=== PATIENT | female | born 1995 | race African-American/Black ===

== ENCOUNTER 2019-07-02 20:34 | Emergency (ER) | payer BC ==
--- NOTE | 2019-07-03 02:15 | EDM.PDOC ---
ED HPI GENERAL MEDICAL PROBLEM - General Chief Complaint: General Stated Complaint: EXTREME VAG PAIN AND LEFT PAIN AND RT FOOT Time Seen by Provider: 07/03/19 01:53 Source of Information: Reports: Patient History Limitations: Reports: No Limitations - History of Present Illness INITIAL COMMENTS - FREE TEXT/NARRATIVE: Ms. Nur is a very pleasant 24-year-old woman with no chronic medical issues, who states that she was last sexually active in early April, with no intercourse since. She had a menstrual period on 05/10/2019, and ever since then , she has had vaginal irritation, pruritus, odor, and a yellowish mucousy discharge. She had a subsequent menstrual period, her most recent, on 06/12/2019 , and she states that her menses made her symptoms even worse. She tried over- the-counter Monistat in late May, which did not help the situation. She states that she was seen at the walk-in clinic on 06/26/2019. She states that a vaginal swab and a vaginal GC/chlamydia were performed, all of which returned negative. She states that no other tests were performed, no diagnosis given, and no prescriptions written. She then used an [id number] intravaginal antifungal cream that begins with "T" (likely tioconazole, aka Vagistat-1) this past , 06/29/2019. It also did not help. No prior similar symptoms. The patient states that she has had loose stools for about 1 month. No dysuria , per se, except urination causes vaginal burning. She urinates often, but states that she drinks a lot of water. She denies recent fever, chills, cough, dyspnea, chest pain, palpitations, nausea, vomiting, constipation, abdominal pain, recent weight gain or weight loss, recent bloody bowel movements or black bowel movements, recent joint aches, headaches, or rashes. The patient's PCP is in [facility]. She is in this area for work. She is returning to [place] this coming 07/07/2019. She received an influenza vaccine this past 06/26/2019. Vaginal Pain Score (Numeric/FACES): 7 - Related Data Allergies Allergy/AdvReac Type Severity Reaction Status Date / Time No Known Allergies Allergy Verified 07/02/19 20:47 Home Meds: Home Meds . [No Known Home Meds] 07/02/19 [History] Past Medical History Endocrine/Metabolic History: Reports: Obesity/BMI 30+ - Infectious Disease History Infectious Disease History: Reports: Human Papilloma Virus (HPV) - Past Surgical History HEENT Surgical History: Reports: Adenoidectomy, Myringotomy w Tube(s) (bilateral ), Tonsillectomy Social & Family History - Tobacco Use Smoking Status *Q: Never Smoker Tobacco Use Within Last Twelve Months: Vaping (nicotine) - Caffeine Use Caffeine Use: Reports: Coffee - Alcohol Use Alcohol Use History: Yes Alcohol Use Frequency: Socially - Recreational Drug Use Recreational Drug Use: No - Living Situation & Occupation Living situation: Reports: Single, Alone Occupation: Employed (EXTERN) ED ROS GENERAL - Review of Systems Review Of Systems: Comprehensive ROS is negative, except as noted in HPI. ED EXAM, RENAL/ - Physical Exam Exam: See Below Exam Limited By: No Limitations General Appearance: Alert, WD/WN, No Apparent Distress Eye Exam: Bilateral Eye: EOMI, Normal Inspection Ears: Normal External Exam, Hearing Grossly Normal Nose: Normal Inspection Throat/Mouth: Normal Inspection, Normal Lips, Normal Voice, No Airway Compromise Head: Atraumatic, Normocephalic Neck: Normal Inspection, Full Range of Motion Respiratory/Chest: No Respiratory Distress, Lungs Clear, Normal Breath Sounds, No Accessory Muscle Use Cardiovascular: Normal Peripheral Pulses, Regular Rate, Rhythm, No Edema, No Gallop, No JVD, No Murmur, No Rub GI/Abdominal: Normal Bowel Sounds, Soft, Non-Tender (including suprapubically), No Organomegaly, No Distention, No Abnormal Bruit, No Mass (Female) Exam: Vaginal Discharge (copious, greenish, slightly thick, slightly malodorous). No: Cervix Motion Tenderness, Vaginal Bleeding, Vaginal Lesions Rectal (Female) Exam: Deferred Back Exam: Normal Inspection, Full Range of Motion. No: CVA Tenderness (L), CVA Tenderness (R) Extremities: Normal Inspection, Normal Range of Motion, No Pedal Edema, Normal Capillary Refill Neurological: Alert, Oriented, Normal Cognition, No Motor/Sensory Deficits Psychiatric: Normal Affect Skin Exam: Warm, Dry, Intact, Normal Color, No Rash Course - Vital Signs Last Recorded V/S: Last Vital Signs Temp 36.3 C 07/02/19 20:43 Pulse 73 07/02/19 20:43 Resp 16 07/02/19 20:43 BP 137/87 07/02/19 20:43 Pulse Ox 100 07/02/19 20:43 - Orders/Labs/Meds Orders: Active Orders 24 hr Category Date Time Status CULTURE GENITAL [RM] Stat Lab 07/03/19 02:15 Received Labs: Laboratory Tests 07/03/19 Range/Units 02:15 C trachomatis DNA (PCR) Not detected N gonorrhoeae DNA (PCR) Not detected Meds: Medications Discontinued Medications Generic Name Dose Route Start Last Admin Trade Name Dada PRN Reason Stop Dose Admin Metronidazole 2,000 mg 07/03/19 03:02 07/03/19 03:16 Metronidazole PO 07/03/19 03:03 2,000 mg NOW STA Administration - Re-Assessments/Exams Free Text/Narrative Re-Assessment/Exam: 07/03/19 02:03 As above, the patient relates a history of vaginitis and vaginal discharge, but the cause is not immediately clear, particularly since a wet prep or culture, along with a GC/chlamydia were apparently negative at the walk-in clinic a week ago. I have asked Mey MINER to put the patient into our gyne examination room, where I will examine the patient and collect swabs, including a GC/chlamydia by PCR. 07/03/19 02:15 On pelvic examination, the patient has a copious amount of a greenish slightly thick, slightly malodorous, liquid discharge. No vaginal lesions seen. The patient's nulliparous cervix is closed. No bleeding or tissue seen. A wet prep , vaginal culture, and GC/chlamydia by PCR were collected. 07/03/19 03:03 The patient's wet prep is remarkable for no yeast seen, few trichomonas seen with positive trichomonas antigen, few clue cells, many WBCs, few RBCs, and moderate epithelial cells. Based on the above, I will treat the patient for trichomonas with a single dose of 2 g of oral metronidazole. The GC/chlamydia by PCR is still pending. 07/03/19 04:29 The patient's vaginal GC/chlamydia by PCR test is negative for both. 07/03/19 04:33 Test results discussed with the patient. As above, she has been treated for trichomoniasis. I will discharge her home with a referral to Dr. Calderón, to follow-up on her vaginal culture results. Departure - Departure Time of Disposition: 04:34 Disposition: Home, Self-Care 01 Condition: Good Clinical Impression: Trichomoniasis of vagina - Discharge Information *PRESCRIPTION DRUG MONITORING PROGRAM REVIEWED*: Not Applicable *COPY OF PRESCRIPTION DRUG MONITORING REPORT IN PATIENT GAYLA: Not Applicable Instructions: Trichomoniasis Referrals: Stefani Alaniz MD [Physician] - Forms: ED Department Discharge Additional Instructions: You were seen in the emergency room for vaginal irritation, itchiness, malodor, and a yellowish mucousy discharge, since 05/10/2019. Work-up in the ER included a vaginal wet prep, a GC/chlamydia by PCR test, and a vaginal culture. The wet prep found that you have trichomoniasis. The GC/chlamydia test was negative, indicating no gonorrhea or chlamydia. The vaginal culture results will not result for the next few days. You were treated with a single dose of 2 g of oral metronidazole. This should adequately treat your trichomoniasis, and your symptoms should improve. We strongly recommend that you follow-up with the [facility] Dr. Stefani Alaniz on or about 07/05/2019, to follow-up on your vaginal culture results, to make sure that nothing else needs treating. Make sure that the hotel receptionist knows that you are following up from the ER. As discussed, we recommend that you notify the sexual partner from early April of your diagnosis of trichomoniasis, so that he/she can be tested and treated. If any other problems, please do not hesitate to return to the ER. Sepsis Event Note - Evaluation Sepsis Screening Result: No Definite Risk - Focused Exam Vital Signs: Vital Signs Temp Pulse Resp BP Pulse Ox 07/02/19 20:43 36.3 C 73 16 137/87 100 Date Exam was Performed: 07/03/19 Time Exam was Performed: 04:56 - My Orders Last 24 Hours: My Active Orders 07/03/19 02:15 CULTURE GENITAL [RM] Stat - Assessment/Plan Last 24 Hours: My Active Orders 07/03/19 02:15 CULTURE GENITAL [RM] Stat
[2019-07-03] MEDS ORDERED: metroNIDAZOLE 250 MG Tab PO STA (03:02)
[2019-07-03 03:53] LABS: C. TRACHOMATIS BY PCR NOT DETECTED; N. GONORRHOEAE BY PCR NOT DETECTED
== END 2019-07-03 04:44 | disposition home or self-care (01) ==
LOC: JD.ED 20:34
DX: B37.3 Candidiasis of vulva and vagina (principal); E66.9 Obesity, unspecified; Z68.20 Body mass index [BMI] 20.0-20.9, adult
CPT/HCPCS: 87070; 87077; 87210; 87491; 87591; 87808; 99283; A9270